=== PATIENT | male | born 1945 | race Hispanic/Latino ===

== ENCOUNTER 2017-05-31 11:31 | Inpatient (IN) | payer MEDICARE, MEDICAID ==
[2017-05-31 11:37] VITALS: O2SAT 97; BMI 22.6
--- NOTE | 2017-05-31 11:57 | ED PDOC ---
Psych Transfer Clearance - Clearance Statement Clearance Statement: Reviewed vital signs, lab results and transfer papers. Patient clinically stable for psychiatric admission.
[2017-05-31] MEDS ORDERED: Magnesium Hydroxide Susp 30 ml UD PO PRN (13:33)
[2017-05-31] MEDS ORDERED: Alum-Mag Hydrox-Simethicone Susp (30 mL) PO PRN (13:33)
[2017-05-31] MEDS ORDERED: Bismuth Subsalicylate 262 mg/15 ml Sus (240 ml) PO PRN (13:33)
--- NOTE | 2017-05-31 15:01 | PCM.BM ---
Treatment assets and liabiliti Patient Assests: cooperative, negotiates basic needs Patient Liabilities: substance abuse, medical problems - Milieu Protocol Maintain good personal hygiene: daily Encourage regular showers, daily Remind patient to perform daily oral care, daily Assist patient to perform ADL's Conduct patient checks and document Observation sheet: Q15 minutes Maintain personal safety: every shift Educate patient to report safety concerns to staff, every shift Monitor environment for contraband/sharps Medication safety: Monitor for expected outcome, potential side effects: every shift, Assess barriers to learning: every shift, Assess readiness for medication education: every shift
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
[2017-05-31] MEDS ORDERED: DiphenhydrAMINE 50 mg/ml Inj IM PRN (20:51)
[2017-06-01 08:53] LABS: HEMOGLOBIN 11.5 g/dL (12.0-18.0); MEAN CELL VOLUME 89.6 fl (80.0-94.0); MEAN CORPUSCULAR HEMOGLOBIN 28.9 pg (27.0-31.0); MEAN CORPUSCULAR HGB CONC 32.3 g/dL (33.0-37.0); RBC 3.96 Mil/uL (4.40-5.90); RED CELL DISTRIBUTION WIDTH 15.8 % (11.5-14.5); WHITE BLOOD COUNT 11.6 K/uL (4.8-10.8)
[2017-06-01 08:56] LABS: BLOOD UREA NITROGEN 15 mg/dl (9-20); CALCIUM 9.3 mg/dL (8.4-10.2); GFR AFRICAN-AMERICAN > 60; GFR NON-AFRICAN AMERICAN > 60; HDL CHOLESTEROL 29 MG/DL (30-70)
[2017-06-01 09:07] LABS: LDL CHOLESTEROL 69 mg/dL (0-129)
[2017-06-01 09:09] LABS: T4 7.08 ug/dl (5.5-11.0)
[2017-06-01 09:18] LABS: IRON 21 ug/dL (49-181)
[2017-06-01 09:22] LABS: T3 1.01 nmol/L (1.49-2.60)
[2017-06-01 09:27] LABS: % IRON SATURATION 9 % (20-55); TOTAL IRON BINDING CAPACITY 232 ug/dL (250-450)
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
[2017-06-03 10:44] LABS: BASO % 0.2 % (0.0-2.0); EOS % 0.1 % (0.0-4.0); LYMPH # 1.4 K/uL (1.0-4.3); LYMPH % 11.9 % (20.0-40.0); MEAN CELL VOLUME 89.5 fl (80.0-94.0); MEAN CORPUSCULAR HEMOGLOBIN 29.4 pg (27.0-31.0); MEAN CORPUSCULAR HGB CONC 32.9 g/dL (33.0-37.0); MEAN PLATELET VOLUME 12.2 fl (7.2-11.7); MONO # 4.4 K/uL (0.0-0.8); MONO % 36.4 % (0.0-10.0); NEUT # 6.3 K/uL (1.8-7.0); NEUT % 51.4 % (50.0-75.0); PLATELET COUNT 88 K/uL (130-400); RBC 4.08 Mil/uL (4.40-5.90); RED CELL DISTRIBUTION WIDTH 15.8 % (11.5-14.5); WHITE BLOOD COUNT 12.2 K/uL (4.8-10.8)
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
[2017-06-03 12:00] LABS: ANISOCYTOSIS SLIGHT; BANDS 2 % (0-2); LYMPHOCYTE 10 % (20-50); MONOCYTE 35 % (0-10); NEUTROPHIL 51 % (42-75); PLATELET ESTIMATE DECREASED (NORMAL); REACTIVE LYMPHOCYTES 2 % (0-0); TOTAL CELLS COUNTED 100
[2017-06-03 12:02] LABS: LARGE PLATELETS PRESENT
[2017-06-03] MEDS: guaiFENesin 200 mg/10 ml Syrup UD PO PRN (21:39)
--- NOTE | 2017-06-04 09:35 | PCM.PYCHPN ---
Psychiatric Progress Note - Psychiatric Progress Note Patient seen today, length of contact: Patient evaluated, case discussed w/ team , chart reviewed Patient Chief Complaint: "I'm not sleeping well." Problems Identified/Issues Discussed: Patient continues to report feeling depressed w/ poor sleep, but is observed sleeping by staff. We discussed continued titration of Trazodone. NO AH/VH/SI /HI. Denies acute paranoia. Medication Change: Yes (Increase Trazodone to 100 mg PO HS) Medical Record Reviewed: Yes Consults ordered or reviewed: Medicine consult Mental Status Examination - Cognitive Function Orientation: Person, Place, Situation, Time Memory: Impaired Association: WNL Fund of Knowledge: [facility] Decription of patient's judgement and insights: Fair I/J - Mood Mood: Depressed - Affect Affect: Constricted - Formal Thought Process Formal Thought Process: No Impairment Psychotic Thoughts and Behaviors: NO AH/VH/paranoia/delusions - Suicidal Ideation Suicidal Ideation: No - Homicidal Ideation Homicidal Ideation: No Goal/Treatment Plan - Goal/Treatment Plan Need for Continued Stay: Remain at risks for inpatient hospitalization, Discharge may exacerbated symptoms Progress Toward Problem(s) and Goals/Treatment Plan: Psychosis unspecified; r/o MDD w/ psychotic features; r/o substance induced mood and/or psychotic disorder -Individual and group therapy -Psychoeducation -Continue Risperdal 0.5 mg PO HS -Increase Trazodone to 100 mg PO HS -Medicine consult -Disposition planning Estimated Date of D/C: 06/06/17
[2017-06-04] MEDS: guaiFENesin 200 mg/10 ml Syrup UD PO PRN (21:09)
[2017-06-05] MEDS: guaiFENesin 200 mg/10 ml Syrup UD PO PRN (09:27)
--- NOTE | 2017-06-05 10:40 | PCM.PYCHPN ---
Psychiatric Progress Note - Psychiatric Progress Note Patient seen today, length of contact: Patient evaluated, case discussed w/ team , chart reviewed Patient Chief Complaint: "I'm okay." Problems Identified/Issues Discussed: Patient reports that his mood is improving. He reports improvement in his sleep. NO AH/VH/SI/HI. Denies acute paranoia. We discussed likely discharge to home tomorrow if he continues to improve clinically. Medication Change: No Medical Record Reviewed: Yes Consults ordered or reviewed: Medicine consult Mental Status Examination - Cognitive Function Orientation: Person, Place, Situation, Time Memory: Impaired Association: WNL Fund of Knowledge: [facility] Decription of patient's judgement and insights: Fair I/J - Mood Mood: Depressed - Affect Affect: Constricted - Speech Speech: Appropriate - Formal Thought Process Formal Thought Process: No Impairment Psychotic Thoughts and Behaviors: NO AH/VH/paranoia/delusions - Suicidal Ideation Suicidal Ideation: No - Homicidal Ideation Homicidal Ideation: No Goal/Treatment Plan - Goal/Treatment Plan Need for Continued Stay: Remain at risks for inpatient hospitalization, Discharge may exacerbated symptoms Progress Toward Problem(s) and Goals/Treatment Plan: Psychosis unspecified; r/o MDD w/ psychotic features; r/o substance induced mood and/or psychotic disorder; patient is improving clinically and will likely be discharged tomorrow. -Individual and group therapy -Psychoeducation -Continue Risperdal 0.5 mg PO HS -Continue Trazodone 100 mg PO HS -Medicine consult -Disposition planning Estimated Date of D/C: 06/06/17
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
[2017-06-05 15:40] VITALS: RESP 20
[2017-06-06 06:16] VITALS: BP 105/60; PULSE 101; TEMP 97.7
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
[2017-06-06] MEDS: guaiFENesin 200 mg/10 ml Syrup UD PO PRN (09:04)
--- NOTE | 2017-06-06 11:02 | RAD ---
HISTORY: Worsening cough COMPARISON: No prior. TECHNIQUE: Chest PA and lateral FINDINGS: LUNGS: Coarsened/increased interstitial markings most pronounced in the lung bases ; rule out underlying sequela of reactive/inflammatory airway disease or viral illness. Mild bibasilar atelectasis. PLEURA: No significant pleural effusion identified. No pneumothorax apparent. CARDIOVASCULAR: Normal. OSSEOUS STRUCTURES: No significant abnormalities. VISUALIZED UPPER ABDOMEN: Normal. OTHER FINDINGS: None. IMPRESSION: Coarsened/increased interstitial markings most pronounced in the lung bases ; rule out underlying sequela of reactive/inflammatory airway disease or viral illness. Mild bibasilar atelectasis.
== END 2017-06-06 14:00 | disposition home or self-care (01) | DRG 885 ==
LOC: H.ER 11:31 → H.ERHOLD 11:57 → H.STEP 13:06 → H.PSYCH 20:30 → H.STEP 06-02 20:21
PROVIDERS: ADMIT Psychiatry & Neurology Psychiatry; ATTEND Psychiatry & Neurology Psychiatry
PROC: GZ51ZZZ Individual Psychotherapy, Behavioral (ICD-10-PCS; 2017-05-31)
PROC: GZHZZZZ Group Psychotherapy (ICD-10-PCS; principal; 2017-06-02)
DX: F29 Unspecified psychosis not due to a substance or known physiological condition (principal); F20.9 Schizophrenia, unspecified; R45.851 Suicidal ideations; W19.XXXA Unspecified fall, initial encounter; F22 Delusional disorders; F32.9 Major depressive disorder, single episode, unspecified; F41.9 Anxiety disorder, unspecified; Z87.891 Personal history of nicotine dependence; S80.01XA Contusion of right knee, initial encounter; F12.10 Cannabis abuse, uncomplicated